=== PATIENT | male | born 1965 | race African-American/Black ===

== ENCOUNTER 2021-11-12 23:07 | Emergency (ER) | payer MEDICARE, OTHER ==
[~2021-11-12] VITALS: Ht 175.3 cm; Wt 77.0 kg
[2021-11-13] MEDS ORDERED: MED4 MT (00:23)
[2021-11-13] MEDS ORDERED: KETOROLAC 30MG/ML VIAL IM ONE (00:30)
[2021-11-13] MEDS ORDERED: PREDNISONE 20MG TABLET PO ONE (00:30)
[2021-11-13] MEDS ORDERED: ACETAMINOPHEN 325MG TABLET PO ONE (00:30)
[2021-11-13 00:56] VITALS: BP 133/86
== END 2021-11-13 01:36 | disposition home or self-care (01) ==
LOC: ER 23:07
DX: M54.30 Sciatica, unspecified side (principal); I10 Essential (primary) hypertension; F31.9 Bipolar disorder, unspecified; F20.9 Schizophrenia, unspecified; Z88.0 Allergy status to penicillin
CPT/HCPCS: 99283; J1885; J7512

== ENCOUNTER 2022-02-22 23:49 | Emergency (ER) | payer MEDICARE, MEDICAID ==
[~2022-02-22 23:49] MED LIST: MED4 MT
== END 2022-02-23 01:58 | disposition left against medical advice (07) ==
LOC: ER 23:49
DX: Z53.21 Procedure and treatment not carried out due to patient leaving prior to being seen by health care provider (principal)